=== PATIENT | male | born 1990 | race Caucasian/White ===

== ENCOUNTER 2022-07-07 14:32 | Inpatient (IN) | payer OTHER ==
[~2022-07-07] VITALS: Ht 185.4 cm; Wt 107.0 kg
[2022-07-07] MEDS ORDERED: MORPHINE SULFATE 4 MG/ML SYR/VIAL IV ONE (14:45)
[2022-07-07] MEDS ORDERED: ONDANSETRON HCL 4 MG/2 ML VIAL IV ONE (14:45)
[2022-07-07 15:20] LABS: Hematocrit 47.8 % (41.0-53.0); Hemoglobin 16.3 g/dL (13.5-17.5); Mean Corpuscular Hemoglobin 28.7 pg (28.0-32.0); Mean Corpuscular Hgb Conc. 34.2 g/dL (32.0-36.0); Red Blood Cells 5.68 10^6/uL (4.5-5.90); Red Cell Distribution Width 13.5 % (11.8-14.3); White Blood Cell 19.1 10^3/uL (4.4-10.8)
[2022-07-07 15:24] LABS: Band Neutrophils % (manual) 0; Basophils % (manual) 0 (0.0-2.0); Blast Cells 0; Metamyelocytes % 0; Myelocytes % 0; Promyelocytes % 0; Reactive Lymphocytes 0
[2022-07-07] MEDS ORDERED: ENOXAPARIN SOD 100 MG/1 ML SYRINGE SC ONE (15:45)
[2022-07-07] MEDS ORDERED: cefTRIAXone 1GM/50ML D5W 50 ML IV ONE (15:45)
[2022-07-07 15:51] LABS: BUN/Creatinine Ratio 9.6; Potassium 4.5 mmol/L (3.5-5.1)
[2022-07-07 15:52] LABS: Albumin 2.9 g/dL (3.4-5.0); Calcium 8.7 mg/dL (8.5-10.1)
[2022-07-07] MEDS ORDERED: GADOTERATE MEG 10 MMOL/20ml INJ (0.5MMOL/ml) IV ONE (15:56)
[2022-07-07 16:00] LABS: Total Protein 6.3 g/dL (6.4-8.2)
[2022-07-07 16:16] LABS: Lymphocytes % (manual) 5 (10.0-50.0); Monocytes % (manual) 5 (0-12)
[2022-07-07 16:17] LABS: Eosinophils % (manual) 42 (0-7)
[2022-07-07] MEDS ORDERED: MORPHINE SULFATE INJ 2 MG/ml SYRG IV PRN ×3 (17:15→18:00)
[2022-07-07] MEDS ORDERED: NITROGLYCERIN 0.4 MG SL TAB SL PRN ×2 (17:15→18:00)
[2022-07-07] MEDS ORDERED: ACETAMINOPHEN 325 MG TAB PO PRN (18:00)
[2022-07-07] MEDS ORDERED: ONDANSETRON HCL 4 MG/2 ML VIAL IV PRN (18:00)
[2022-07-07] MEDS ORDERED: NITROGLYCERIN 0.4MG/HR TOPICAL PATCH TD ONE (18:15)
[2022-07-07 19:04] LABS: Cholesterol 166 mg/dL (< 200); HDL Cholesterol 14 mg/dL (40-59); LDL Cholesterol 148 mg/dL (< 100); Triglycerides 161 mg/dL (< 150)
[2022-07-07 23:00] VITALS: BP 111/53
[2022-07-07 23:15] VITALS: BP 123/65
[2022-07-07 23:30] VITALS: BP 121/67
[2022-07-07 23:33] VITALS: BP 121/67
[2022-07-07 23:45] VITALS: BP 115/60
[2022-07-08] VITALS (57 sets, daily range): BP systolic 80–135; BP diastolic 45–83
[2022-07-08] MEDS: HYDROcodone-ACET 5/325MG TAB PO PRN ×2 (02:28→12:26)
[2022-07-08 05:25] LABS: Hematocrit 43.6 % (41.0-53.0); Mean Corpuscular Hemoglobin 28.7 pg (28.0-32.0); Mean Corpuscular Hgb Conc. 34.4 g/dL (32.0-36.0); Mean Corpuscular Volume 83.2 fL (80.0-100.0); Red Blood Cells 5.24 10^6/uL (4.5-5.90); Red Cell Distribution Width 13.7 % (11.8-14.3); White Blood Cell 19.7 10^3/uL (4.4-10.8)
[2022-07-08 05:37] LABS: Basophils % (manual) 0 (0.0-2.0); Blast Cells 0; Metamyelocytes % 0; Myelocytes % 0; Promyelocytes % 0; Reactive Lymphocytes 0
[2022-07-08 05:39] LABS: INR 1.13 (0.9-1.15); Partial Thromboplastin Time 32.5 sec (24.6-33.4)
[2022-07-08 05:57] LABS: BUN/Creatinine Ratio 11.3; Calcium 8.3 mg/dL (8.5-10.1); Magnesium 2.2 mg/dL (1.6-2.6); Potassium 4.9 mmol/L (3.5-5.1)
[2022-07-08] MEDS ORDERED: IODIXANOL 320MG/ML 100ML BTL IV ONE (07:31)
[2022-07-08] MEDS ORDERED: LIDOCAINE 2%HCL (LOCAL ANESTH.) INJ 20ML MDV ONE (07:31)
[2022-07-08] MEDS ORDERED: IOHEXOL 350 MG/ML 100ML IJ ONE (07:31)
[2022-07-08] MEDS ORDERED: ANGIOMAX 250 MG VIAL IV ONE (07:35)
[2022-07-08] MEDS ORDERED: HEPARIN SODIUM (PORCINE) 5000 UNITS/ML 1ML VIAL ONE (07:36)
[2022-07-08] MEDS ORDERED: VERAPAMIL 2.5MG/ML INJ 2ML VIAL IV ONE (07:36)
[2022-07-08] MEDS ORDERED: fentaNYL CITRATE 100 MCG/2 ML VL ONE (07:36)
[2022-07-08] MEDS ORDERED: SODIUM CHL 0.9% 0 ML ONE (07:37)
[2022-07-08] MEDS ORDERED: MIDAZOLAM HCL 2MG/2ML 2ml VIAL (1mg/ml) ONE ×2 (07:37→08:55)
[2022-07-08 08:21] LABS: Urine Bacteria NONE SEEN /hpf (None Seen); Urine Blood Negative /uL (Negative); Urine Mucus FEW (None Seen); Urine Specific Gravity 1.045 (1.001-1.035); Urine WBC 21 /hpf (0 - 3)
[2022-07-08 08:33] LABS: Amphetamine Screen, Urine NEGATIVE (NEGATIVE); Barbiturate Scree,Urine NEGATIVE (NEGATIVE); Benzodiazephine Screen, Urine NEGATIVE (NEGATIVE); Cannabinoid Screen, Urine NEGATIVE (NEGATIVE); Cocaine Screen, Urine NEGATIVE (NEGATIVE); Opiate Scree,Urine POSITIVE (NEGATIVE); Phencyclidine Screen, Urine NEGATIVE (NEGATIVE)
[2022-07-08 09:04] LABS: Band Neutrophils % (manual) 3; Eosinophils % (manual) 46 (0-7); Lymphocytes % (manual) 13 (10.0-50.0); Monocytes % (manual) 7 (0-12)
[2022-07-08] MEDS ORDERED: LIDOCAINE VISCOUS 2% 15ML UD ONE (09:12)
[2022-07-08 09:15] LABS: Protein, Urine 168.6 mg/dL (0.0-11.9)
[2022-07-08] MEDS ORDERED: LIDOCAINE VISCOUS 2% 15ML UD PO ONE (09:15)
[2022-07-08] MEDS ORDERED: ONDANSETRON HCL 4 MG/2 ML VIAL ONE (09:18)
[2022-07-08] MEDS ORDERED: ONDANSETRON HCL 4 MG/2 ML VIAL IV ONE (09:30)
[2022-07-08] MEDS ORDERED: PANTOPRAZOLE 40 MG/10 ML VIAL INJ IV ONE (09:45)
[2022-07-08] MEDS ORDERED: ASPirin 81 mg TAB PO SCH (10:00)
[2022-07-08] MEDS: SODIUM BICARBONATE 50ML VIAL 75 ML in D5W 5% 1,000 ML IV SCH ×2 (10:38→20:34)
[2022-07-08] MEDS ORDERED: cefTRIAXone 1GM/50ML D5W 50 ML IV ONE (10:45)
[2022-07-08] MEDS ORDERED: CARVEDILOL 3.125 MG TAB ONE (12:19)
[2022-07-08] MEDS: NITROGLYCERIN 0.4MG/HR TOPICAL PATCH TD SCH (12:29)
[2022-07-08] MEDS: CARVEDILOL 3.125 MG TAB PO SCH (21:18)
[2022-07-08] MEDS: ATORVASTATIN 20 MG TAB PO SCH (21:18)
[2022-07-08] MEDS: ASPirin 81 mg TAB PO SCH (23:45)
[2022-07-09] MEDS: SODIUM BICARBONATE 50ML VIAL 75 ML in D5W 5% 1,000 ML IV SCH ×3 (02:25→23:33)
[2022-07-09 05:00] VITALS: BP 127/76
[2022-07-09 06:41] LABS: Basophils # (auto) 0 10 ^3/uL (0-0.2); Eosinophils # (auto) 7.6 10 ^3/uL (0-0.8); Hematocrit 40.8 % (41.0-53.0); Hemoglobin 14.1 g/dL (13.5-17.5); Lymphocytes # (auto) 1.9 10 ^3/uL (0.4-5.4); Lymphocytes % (auto) 10.7 % (10.0-50.0); Mean Corpuscular Hgb Conc. 34.5 g/dL (32.0-36.0); Mean Corpuscular Volume 83.9 fL (80.0-100.0); Monocytes # (auto) 1.2 10 ^3/uL (0-1.3); Monocytes % (auto) 6.7 % (0.0-12.0); Neutrophils % (auto) 39.8 % (37.0-80.0); Nucleated Red Blood Cells % 0.1 %; Red Blood Cells 4.86 10^6/uL (4.5-5.90); Red Cell Distribution Width 13.4 % (11.8-14.3); White Blood Cell 17.7 10^3/uL (4.4-10.8)
[2022-07-09 07:02] LABS: Eosinophils % (auto) 42.8 % (0.0-7.0)
[2022-07-09 07:06] LABS: Potassium 4.5 mmol/L (3.5-5.1)
[2022-07-09 07:24] LABS: BUN/Creatinine Ratio 9.6; Magnesium 2.4 mg/dL (1.6-2.6)
[2022-07-09 08:38] VITALS: BP 150/87
[2022-07-09] MEDS: cefTRIAXone 1GM/50ML D5W 50 ML IV SCH (08:57)
[2022-07-09] MEDS: NITROGLYCERIN 0.4MG/HR TOPICAL PATCH TD SCH (08:59)
[2022-07-09] MEDS: PANTOPRAZOLE 40 MG TAB PO SCH (09:00)
[2022-07-09] MEDS: LISINOPRIL 5 MG TAB PO SCH (09:00)
[2022-07-09] MEDS: CARVEDILOL 3.125 MG TAB PO SCH ×2 (09:01→21:24)
[2022-07-09] MEDS: ASPirin 81 mg TAB PO SCH (09:02)
[2022-07-09] MEDS: HYDROcodone-ACET 5/325MG TAB PO PRN (12:33)
[2022-07-09 13:00] VITALS: BP 115/78
[2022-07-09 17:00] VITALS: BP 140/91
[2022-07-09] MEDS: ATORVASTATIN 20 MG TAB PO SCH (21:24)
[2022-07-09 22:00] VITALS: BP 127/81
[2022-07-10 05:00] VITALS: BP 131/81
[2022-07-10 05:43] LABS: Hematocrit 43.5 % (41.0-53.0); Hemoglobin 14.9 g/dL (13.5-17.5); Mean Corpuscular Hemoglobin 28.3 pg (28.0-32.0); Mean Corpuscular Hgb Conc. 34.2 g/dL (32.0-36.0); Red Blood Cells 5.25 10^6/uL (4.5-5.90); Red Cell Distribution Width 13.5 % (11.8-14.3)
[2022-07-10 06:12] LABS: Albumin 2.5 g/dL (3.4-5.0); Basophils % (manual) 0 (0.0-2.0); Bilirubin, Total 0.7 mg/dL (0.2-1.0); Blast Cells 0; Calcium 8.2 mg/dL (8.5-10.1); Metamyelocytes % 0; Myelocytes % 0; Potassium 4.8 mmol/L (3.5-5.1); Promyelocytes % 0; Reactive Lymphocytes 0; Total Protein 5.6 g/dL (6.4-8.2)
[2022-07-10] MEDS: SODIUM BICARBONATE 50ML VIAL 75 ML in D5W 5% 1,000 ML IV SCH (06:45)
[2022-07-10 08:07] VITALS: BP 133/76
[2022-07-10 08:29] LABS: Band Neutrophils % (manual) 1; Eosinophils % (manual) 55 (0-7); Lymphocytes % (manual) 5 (10.0-50.0); Monocytes % (manual) 9 (0-12)
[2022-07-10 09:06] VITALS: BP 133/76
[2022-07-10] MEDS: cefTRIAXone 1GM/50ML D5W 50 ML IV SCH (09:23)
[2022-07-10] MEDS: LISINOPRIL 5 MG TAB PO SCH (09:24)
[2022-07-10] MEDS: PANTOPRAZOLE 40 MG TAB PO SCH (09:24)
[2022-07-10] MEDS: ASPirin 81 mg TAB PO SCH (09:24)
[2022-07-10] MEDS: CARVEDILOL 3.125 MG TAB PO SCH (09:25)
[2022-07-10] MEDS: NITROGLYCERIN 0.4MG/HR TOPICAL PATCH TD SCH (10:00)
[2022-07-10 11:17] VITALS: BP 133/76
== END 2022-07-10 11:43 | disposition home or self-care (01) | DRG 280 ==
LOC: EDBD 14:32 → ER 14:32 → TELE 17:59 → DOU IN ICU 22:45 → TELE-WESTW 07-08 17:03
PROVIDERS: ADMIT Registered Nurse; ATTEND Internal Medicine
PROC: 4A023N7 Measurement of Cardiac Sampling and Pressure, Left Heart, Percutaneous Approach (ICD-10-PCS; principal; 2022-07-08)
PROC: B211YZZ Fluoroscopy of Multiple Coronary Arteries using Other Contrast (ICD-10-PCS; 2022-07-08)
PROC: B215YZZ Fluoroscopy of Left Heart using Other Contrast (ICD-10-PCS; 2022-07-08)
PROC: B246ZZ4 Ultrasonography of Right and Left Heart, Transesophageal (ICD-10-PCS; 2022-07-08)
DX: I21.4 Non-ST elevation (NSTEMI) myocardial infarction (principal); G93.41 Metabolic encephalopathy; I63.9 Cerebral infarction, unspecified; N17.0 Acute kidney failure with tubular necrosis; E78.5 Hyperlipidemia, unspecified; E66.9 Obesity, unspecified; D72.10 Eosinophilia, unspecified; F17.200 Nicotine dependence, unspecified, uncomplicated; E55.9 Vitamin D deficiency, unspecified; Z20.822 Contact with and (suspected) exposure to COVID-19; Z79.82 Long term (current) use of aspirin; Z68.31 Body mass index [BMI] 31.0-31.9, adult; I11.9 Hypertensive heart disease without heart failure
CPT/HCPCS: 36415; 70450; 70553; 71045; 80048; 80053; 80061; 80307; 81001; 81241; 82306; 82550; 82570; 83036; 83605; 83735; 83880; 83935; 84156; 84300; 84443; 84484; 85007; 85025; 85027; 85301; 85302; 85303; 85305; 85306; 85379; 85610; 85613; 85652; 85670; 85705; 85730; 85732; 86038; 86141; 86147; 87040; 87081; 87426; 93005; 93312; 93458; 93886; 95819; 96365; 96372; 99152; C9113; G0378; J0696; J2250; J2405; Q9967